=== PATIENT | female | born 1995 | race Caucasian/White ===

== ENCOUNTER 2017-07-16 20:43 | Emergency (ER) | payer OTHER ==
[2017-07-16 23:32] LABS: PLATELET COUNT 440 10^3/uL (150-400)
[2017-07-16 23:49] VITALS: BP 129/90
--- NOTE | 2017-07-16 23:59 | EDPHY ---
H & P Stated Complaint: dx with strep throat last week in [facility], bodywide rash since yest Time Seen by Provider: 07/16/17 22:15 HPI/ROS: Chief Complaint: Skin rash HPI: 22-year-old female was recently traveling in [facility]. About a week ago while there she developed body aches, fevers, malaise, was seen by a doctor there and was diagnosed with possible strep throat and started on amoxicillin. Patient came home yesterday. This morning she woke up in discovered rash on the insides of both of her feet. She was seen at urgent care. Had strep throat swelling done at that time which was positive and told her to continue on the amoxicillin. Patient has had worsening rash is been progressing upper legs and untoward trunk since then. It is not painful but is very itchy. No fevers or chills for over a week. No nausea or vomiting. No headache. No neck pain or stiffness. ROS: 10 point Review of Systems is negative except as noted in the HPI. PMH: Denies Social History: No smoking, no alcohol, no recreational drug use Family History: non-contributory Physical Exam: Gen: Awake, Alert, No Distress HEENT: Nose: no rhinorrhea Eyes: PERRLA, EOMI Mouth: Moist mucosa Neck: Supple, no JVD Chest: nontender, lungs clear to auscultation Heart: S1, S2 normal, no murmur Abd: Soft, non-tender, no guarding Back: no CVA tenderness, no midline tenderness Ext: no edema, non-tender Skin: Patient has a maculopapular rash with mild central clearing on her bilateral lower extremities, trunk and chest. There is few on her arms. Does not involve her face. It is blanching. It is not tender. Is not confluent. There are no petechiae or purpura. Neuro: CN II-XII intact, Sensation grossly intact, Strength 5/5 in bilateral upper and lower extremities - Medical/Surgical History Hx Asthma: No Hx Chronic Respiratory Disease: No Hx Diabetes: No Hx Cardiac Disease: No Hx Renal Disease: No Hx Cirrhosis: No Hx Alcoholism: No Hx HIV/AIDS: No Hx Splenectomy or Spleen Trauma: No Other PMH: bilat wrist surg - Social History Smoking Status: Never smoked Constitutional: Initial Vital Signs Temperature (C) 36.7 C 07/16/17 20:51 Heart Rate 85 07/16/17 20:51 Respiratory Rate 16 07/16/17 20:51 Blood Pressure 151/90 H 07/16/17 20:51 O2 Sat (%) 100 07/16/17 20:51 O2 Delivery Mode Room Air Allergies/Adverse Reactions: ceftinir Allergy (Uncoded 07/16/17 20:55) Home Medications: Medication Instructions Recorded AMOXICILLIN 07/16/17 Control 07/16/17 Medical Decision Making ED Course/Re-evaluation: Patient has extensive macular papular rash. She is certainly not toxic appearing. It is blanching. Her CBC is normal. Her renal function is normal. The it does not appear to be scarlatiniform. It appears to be either a drug reaction or a viral exanthem. She is not toxic appearing. Given the extent of the rash refer to [facility] for follow-up. She will return for any concerns. - Data Points Laboratory Results: Laboratory Results 07/16/17 23:25 07/16/17 23:25 07/16/17 07/16/17 23:25 23:25 WBC 10.64 10^3/uL H 10^3/uL (3.80-9.50) RBC 4.69 10^6/uL 10^6/uL (4.18-5.33) Hgb 15.0 g/dL g/dL (12.6-16.3) Hct 42.7 % % (38.0-47.0) MCV 91.0 fL fL (81.5-99.8) MCH 32.0 pg pg (27.9-34.1) MCHC 35.1 g/dL g/dL (32.4-36.7) RDW 11.3 % L % (11.5-15.2) Plt Count 440 10^3/uL H 10^3/uL (150-400) MPV 8.7 fL fL (8.7-11.7) Neut % (Auto) 56.5 % % (39.3-74.2) Lymph % (Auto) 30.8 % % (15.0-45.0) [place] % (Auto) 8.6 % % (4.5-13.0) Eos % (Auto) 1.9 % % (0.6-7.6) Baso % (Auto) 0.8 % % (0.3-1.7) Nucleat RBC Rel Count 0.0 % % (0.0-0.2) Absolute Neuts (auto) 6.00 10^3/uL 10^3/uL (1.70-6.50) Absolute Lymphs (auto) 3.28 10^3/uL H 10^3/uL (1.00-3.00) Absolute Monos (auto) 0.92 10^3/uL H 10^3/uL (0.30-0.80) Absolute Eos (auto) 0.20 10^3/uL 10^3/uL (0.03-0.40) Absolute Basos (auto) 0.09 10^3/uL 10^3/uL (0.02-0.10) Absolute Nucleated RBC 0.00 10^3/uL 10^3/uL (0-0.01) Immature Gran % 1.4 % H % (0.0-1.1) Immature Gran # 0.15 10^3/uL H 10^3/uL (0.00-0.10) Sodium 142 mEq/L mEq/L (135-145) Potassium 3.9 mEq/L mEq/L (3.5-5.2) Chloride 105 mEq/L mEq/L (97-110) Carbon Dioxide 21 mEq/l L mEq/l (22-31) Anion Gap 16 mEq/L mEq/L (8-16) BUN 13 mg/dL mg/dL (7-23) Creatinine 0.9 mg/dL mg/dL (0.6-1.0) Estimated GFR > 60 Glucose 97 mg/dL mg/dL (70-100) Calcium 9.5 mg/dL mg/dL (8.5-10.4) Medications Given: Discontinued Medications Diphenhydramine HCl (Benadryl Injection) 50 mg IVP EDNOW ONE Stop: 07/16/17 22:50 Last Admin: 07/16/17 23:22 Dose: 50 mg Departure - Departure Disposition: Home, Routine, Self-Care Clinical Impression: Rash Condition: Good Instructions: Acute Rash (ED) Additional Instructions: Follow up at [facility] on Tuesday for further evaluation if symptoms are not improving. You may take Benadryl, according to package instructions. You may also take ibuprofen and acetaminophen as needed for aches, pains, or fever. Return to the emergency department for headache, fevers or chills, nausea vomiting, or any other concerns. Referrals: JÚNIOR ISLAS [Other] - As per Instructions [facility] (ED,. [Edm Groups for Call Sched] - As per Instructions
== END 2017-07-17 00:37 | disposition home or self-care (01) ==
DX: R21 Rash and other nonspecific skin eruption (principal)
CPT/HCPCS: 96374; J1200

== ENCOUNTER → 2017-09-30 | Emergency (ER) | payer OTHER ==
[2017-09-30 01:42] VITALS: BP 138/88
== END | disposition home or self-care (01) ==
LOC: EEVIPCON 01:28
DX: Z53.21 Procedure and treatment not carried out due to patient leaving prior to being seen by health care provider (principal)